=== PATIENT | male | born 1975 | race Caucasian/White ===

== ENCOUNTER 2017-08-07 16:53 | Outpatient (CLI) | payer OTHER ==
--- NOTE | 2017-08-11 08:47 | Ultrasound Report ---
Procedure Date: 08/07/2017 Accession Number: [id number] / [id number] Procedure: US - Testicle CPT Code: FULL RESULT: EXAM: Testicle DATE: 08/07/2017 5:42 PM CLINICAL HISTORY: Follow-up CALCIFICATIONS COMPARISON: None. TECHNIQUE: Real-time scanning was performed with static images obtained, including color-flow. FINDINGS: Right: Testis: 4.5 x 3.3 x 2.4 cm. Normal size and echotexture. No mass or abnormal blood flow. Scattered punctate microcalcifications are present. Epididymis: 0.9 x 0.7 x 1.3 cm. Normal size and echotexture. No mass or abnormal blood flow. 2.5 x 1.7 x 2.8 cm simple cyst. Hydrocele: None. Varicocele: None. Left: Testis: 5 x 3.6 x 2.5 cm. Normal size and echotexture. No mass or abnormal blood flow. Scattered punctate microcalcifications are present. Epididymis: 1.2 x 1.1 x 0.7 cm. Normal size and echotexture. No mass or abnormal blood flow. 2 mm in diameter simple cyst. Hydrocele: None. Varicocele: None. IMPRESSION: Bilateral scattered punctate testicular microcalcifications are present. No solid mass is seen. Right larger than left epididymal cyst. RADIA
== END 2017-08-07 16:54 | disposition home or self-care (01) ==
LOC: DI 16:53
PROVIDERS: ATTEND Physician Assistant
DX: N50.89 Other specified disorders of the male genital organs (principal); N50.3 Cyst of epididymis
CPT/HCPCS: 76870

== ENCOUNTER 2018-07-06 08:33 | Outpatient (CLI) | payer OTHER ==
[2018-07-06 12:29] LABS: BASOPHILS % (AUTO) 0.6 %; EOSINOPHILS # (AUTO) 0.1 10^3/uL (0.0-0.7); EOSINOPHILS % (AUTO) 2.1 %; HGB - HEMOGLOBIN 14.2 g/dL (14.0-18.0); LYMPHOCYTES # (AUTO) 1.7 10^3/uL (1.5-3.5); LYMPHOCYTES % (AUTO) 34.1 %; MEAN CORPUSCULAR HEMOGLOBIN 29.1 pg (27.0-31.0); MEAN CORPUSCULAR HGB CONC 33.5 g/dL (32.0-36.0); MEAN CORPUSCULAR VOLUME 86.9 fL (80.0-94.0); MONOCYTES # (AUTO) 0.6 10^3/uL (0.0-1.0); NEUTROPHILS # (AUTO) 2.5 10^3/uL (1.5-6.6); NEUTROPHILS % (AUTO) 51.2 %; PLT - PLATELET COUNT 245 10^3/uL (130-450); RED BLOOD COUNT 4.87 10^6/uL (4.70-6.10); RED CELL DISTRIBUTION WIDTH 13.2 % (12.0-15.0)
[2018-07-06 12:34] LABS: ALBUMIN 4.2 g/dL (3.2-5.5); ALBUMIN/GLOBULIN RATIO 1.6 (1.0-2.2); ALKALINE PHOSPHATASE 68 IU/L (42-121); ALT ALANINE AMINOTRANSFERASE 42 IU/L (10-60); AST ASPARTATE AMINOTRANSFERASE 29 IU/L (10-42); BILIRUBIN,TOTAL 0.6 mg/dL (0.2-1.0); BUN - BLOOD UREA NITROGEN 19 mg/dL (6-20); CALCIUM 9.2 mg/dL (8.5-10.3); CARBON DIOXIDE - CO2 28 mmol/L (21-32); CHLORIDE 101 mmol/L (101-111); CHOL/HDL RATIO 4.8 (<5.0); CHOLESTEROL 206 mg/dL; CREATININE 0.9 mg/dL (0.6-1.2); GFR - MDRD 91 (>89); GLUCOSE 99 mg/dL (70-100); HDL CHOLESTEROL 43 mg/dL; LDL CHOLESTEROL,CALCULATED 135 mg/dL; LDL/HDL RATIO 3.1 (<3.6); SODIUM 137 mmol/L (135-145); TOTAL PROTEIN 6.9 g/dL (6.7-8.2); VLDL CHOLESTEROL 28 mg/dL
== END 2018-07-06 08:34 | disposition home or self-care (01) ==
LOC: LAB.WCP 08:33
PROVIDERS: ATTEND Family Medicine
DX: E78.5 Hyperlipidemia, unspecified (principal); R53.83 Other fatigue; R20.2 Paresthesia of skin
CPT/HCPCS: 36415; 80053; 80061; 83721; 84443; 85025

== ENCOUNTER 2018-10-05 10:19 | Outpatient (CLI) | payer OTHER ==
--- NOTE | 2018-10-05 15:31 | SLEEP CARE CONSULTATION ---
Information from patient questionnaire entered by Lia Duran. I have reviewed and concur with the information entered by Lia Duran. This document represents the service I personally performed and the decisions made by me, Luly Orourke MD, [facility]. History of Present Illness Reason for Visit: New patient Chief Complaint: reports: Unrefreshed sleep, Snoring, Excessive daytime sleepiness, Observed pauses in breathing, Fatigue Usual bedtime: 9:00 PM Time it takes to fall asleep: 2 HOURS Snores at night: Yes Observed to quit breathing while asleep: No Sleeps alone due to snoring: No Toss, Turn, or Twitch while sleeping: No Recalls having dreams: No Usually gets out of bed at: 6:00AM Feels refreshed in the morning: No Morning headache: No Sleepy or fatigued during the day: Yes Ever fallen asleep while driving: No Takes day naps: Yes Dreams during day naps: Yes Prior sleep studies: No Additional HPI information: I had the pleasure of seeing Mr. Gr today regarding the possibility of him having a sleep disorder. As you know, he is a 43 year old gentleman who complains of loud snore, observed apneas, unrefreshed sleep persistent fatigue, and excessive daytime sleepiness. He also complains of restless leg syndrome before he falls asleep. The patient tells me that he normally goes to bed around 9 pm, and it takes him approximately 2 hours to fall asleep because of his legs. His can still sleep in the same bed. He can recall waking up on the average of 0 times during the night. He has awakened occasionally because of his own snoring, choking, and having to gasp for air. There is not a lot of tossing and turning in his sleep. He has somniloquy (sleep talking) but not somnambulism (sleep walking). Generally he can recall having dreams. In the morning he usually gets up out of the bed around 6 a.m. feeling refreshed and rested. He usually does not have a morning headache. During the day he complains of feeling sleepy and fatigued. His score on [place] Sleepiness Scale is 13 out of 24. He has never fallen asleep while driving nor has had any accident due to sleepiness. He usually does not take naps during the day. Upon falling asleep during the day he reports having dreams. He denies having impaired concentration during the day. Subjective Initial [place] Sleepiness Scale score: 13 Social History The patient's occupation is a SE. Patient is and lives in [place]. Have you smoked in the past 12 months: Yes Cigarettes per day (20/pack): 20 Years of smokin Quit date: 2016 Smoking Pack Years: 20.0 Alcohol use: No Caffeine use: Yes Caffeine amount and frequency: 3 CUPS/DAY Family History Family history of sleep disordered breathing: Yes Family Hx Sleep Apnea: Mother: Snoring Allergies and Home Medications Known drug allergies: No Home medication list reviewed: Yes Review of Systems Ear/Nose/Throat: reports: nasal congestion, sinus problems Immunologic: reports: sneezing Physical Exam Vital signs obtained and entered by: Dr. Orourke Blood Pressure: 90/60 Cuff size: regular Heart Rate: 66 O2 Saturation: 97 Height: 5 ft 11 in Weight (kg): 85.275 kg Body Mass Index: 26.2 BMI Classification: Overweight Neck circumference: 17 HEENT: No craniofacial malformation Nostrils: patent to airflow Turbinates: normal Septum: midline Mouth and throat: normal Soft palate: normal Hard palate: normal Uvula: normal Uvula visualization: 100% Mallampati Class I Tongue: normal in size Tonsils: small Chin and jaw: normal size and position Neck: normal w/o lymphadenopathy or thyromegaly Heart: regular rate and rhythm Lungs: clear bilaterally Abdomen: soft, non-tender Extremities: no edema or clubbing Neurologic: intact, no focal deficits Impression and Plan IMPRESSION: 1. Obstructive Sleep Apnea-Hypopnea Syndrome, as suggested by history of loud and irregular snoring, observed cessation of breath while asleep, and daytime hypersomnolence. Pathophysiology of sleep-disordered breathing was discussed. I recommend proceeding to polysomnography to confirm the diagnosis and to assess severity. If he has significant sleep disordered breathing, a manual CPAP titration study will also be performed to find the optimal treatment pressure. I informed the patient of what the sleep studies involve and after some discussion, he agreed to proceed. 2. Restless leg syndrome. The patients description of the discomfort is quite typical of restless leg syndrome. The cause of restless leg syndrome is typically unknown. Few known causes are iron deficiency, renal failure, and selective serotonin reuptake inhibitors. Iron and ferritin levels are recommended in addition to the routine blood work. Treatment with a dopaminergic agent is indicated if it causes significant discomfort, including insomnia. The sleep study most likely will show periodic leg movement of sleep. Plan: 1. Schedule polysomnography + manual CPAP titration study and return in 1 to 2 weeks after the study to discuss result and initiate therapy. 2. Avoid long distance driving or when feeling sleepy. 3. Avoid alcohol, sedative and muscle relaxant around bedtime. 4. Attempt to lose weight. 5. Primary care provider to check iron and ferritin levels. I spent 100% of this 15 minute visit face to face with the patient with greater than 50% of this was spent time counseling the patient and coordination of care.
[2018-10-05 15:32] VITALS: BP 90/60
== END 2018-10-05 10:20 | disposition home or self-care (01) ==
LOC: SC 10:19
PROVIDERS: ATTEND Internal Medicine Pulmonary Disease
DX: G47.10 Hypersomnia, unspecified (principal); R06.83 Snoring; R06.81 Apnea, not elsewhere classified; G25.81 Restless legs syndrome
CPT/HCPCS: 99203; 99212

== ENCOUNTER 2018-10-05 15:01 | Outpatient (CLI) | payer OTHER ==
--- NOTE | 2018-10-06 15:40 | Ultrasound Report ---
Reason: RADIOGRAPHIC CALCIFICATION Procedure Date: 10/05/2018 Accession Number: [id number] / [id number] Procedure: US - Testicle CPT Code: FULL RESULT: EXAM: SCROTAL ULTRASOUND EXAM DATE: 10/05/2018 04:13 PM. CLINICAL HISTORY: RADIOGRAPHIC CALCIFICATION. COMPARISON: TESTICLE 08/07/2017 4:59 PM. TECHNIQUE: Real-time scanning was performed with static images obtained. Color-flow images were utilized. FINDINGS: Right: Testis: 4.9 x 2.4 x 3.2 cm. Microlithiasis again visualized Normal size and echotexture. No mass or abnormal blood flow. Epididymis: 5 x 0.3 x 0.7 cm. 2.6 x 1.6 x 2.3 cm cyst Normal size and echotexture. No mass or abnormal blood flow. Hydrocele: Small with debris Varicocele: None. Left: Testis: 5.1 x 2.2 x 3 cm. Microlithiasis again visualized Normal size and echotexture. No mass or abnormal blood flow. Epididymis: 4.4 x 0.3 x 0.9 cm. 0.2 x 0.1 x 0.2 cm epididymal cyst Normal size and echotexture. No mass or abnormal blood flow. Hydrocele: Small with debris Varicocele: None. IMPRESSION: 1. Bilateral microlithiasis. No solid mass. 2. Right larger than left epididymal cyst RADIA
== END 2018-10-05 15:02 | disposition home or self-care (01) ==
LOC: DI 15:01
PROVIDERS: ATTEND Physician Assistant
DX: N50.89 Other specified disorders of the male genital organs (principal); N50.3 Cyst of epididymis
CPT/HCPCS: 76870

== ENCOUNTER 2018-11-10 19:30 | Outpatient (CLI) | payer OTHER | END 2018-11-10 23:59 | disposition home or self-care (01) | LOC: SC 19:30 | PROVIDERS: ATTEND Internal Medicine Pulmonary Disease | DX: G47.33 Obstructive sleep apnea (adult) (pediatric) (principal) | CPT/HCPCS: 95806 ==

== ENCOUNTER 2018-12-09 08:48 | Outpatient (CLI) | payer BC ==
[2018-12-09 09:53] VITALS: BP 100/70
--- NOTE | 2018-12-09 09:53 | SLEEP CARE CONSULTATION ---
Information from patient questionnaire entered by Celina Álvarez. I have reviewed and concur with the information entered by Celina Álvarez. This document represents the service I personally performed and the decisions made by me, Eun Restrepo RN, MSN, [employer]. History of Present Illness Initial [place] Sleepiness Scale score: 13 Current [place] Sleepiness Scale score: 15 Additional HPI information: MAITE GUTIERREZ returns for follow up of the recently performed home sleep study ( HST). His spouse stated this was his best night of sleep in a while. Generally he is snoring is louder and more apnea observed. The patient was informed of the following HST findings: I explained the pathophysiology behind obstructive sleep apnea. We then spent quite a bit of time discussing different treatment options. For mild obstructive sleep apnea, surgery and oral appliance are alternatives to nasal CPAP therapy but in moderate or severe cases, nasal CPAP is the most effective and reliable treatment. Because apnea is primarily in supine position, then positional management therapy could be effective. Methods discussed such as positioning with pillows, using a T-shirt with tennis balls in the back, and shown commercial products that have a pillow format on back to prevent supine sleep. I reviewed the impact of weight changes on sleep apnea and strongly recommended losing weight. After some discussion, he will consider options and contact this office with choice of treatment. Patient states his main concern is getting to sleep due to restlessness of legs most nights. Symptoms include twitching of legs and feeling an overwhelming to move legs with temporary relief. It also will reduce with walking around. He has a lab studies but it is unknown if iron completed. AAS RLS pamphlet given and reviewed. Patient counseled not drink alcohol less than 4 hours before bedtime as it can increase snoring and apnea. Patient was cautioned about risks of drowsy driving until sleepiness symptoms resolve. AAS patient education on snoring and sleep apnea given and reviewed. Sleep Study - Polysomnography Polysomnography findings: HST Findings SLEEP TIME AND EFFICIENCY: The sleep study recording began at 09:15:55 PM and ended at 05:04:09 AM. Total recording time was 468.2 minutes. The total sleep time was 399.5 minutes. The sleep efficiency was 85.3 percent. The patient spent 191.7 minutes supine, and spent 207.8 minutes non-supine. The patients own estimate of sleep time was 6.00 hours. RESPIRATORY DATA: The AHI in this report is indexed to sleep time based on actigraphy. The AASM defines this as MARCOS. The AHI on this type 3 Home Sleep Study may understate the AHI determined on a type 1 or 2 study, since EEG is not monitored resulting in the inability to score non-desaturating hypopneas. Based on 4% Calculation: The AHI4% calculation of 5.0 per hour of recording time was based on a total of 19 scored apneas and 14 scored hypopneas with 4% desaturations. Supine AHI4%: 8.1 per hour. Non-supine AHI4%: 2.0 per hour. Oxygen Summary: Patient's baseline O2 saturation was 96.8 %. The patient spent 1.3 minutes at an oxygen saturation less than 90%, and 0.4 minutes less than 85%. The desaturation index was 3.8 events per hour sleep time. The lowest saturation was 80.4 %. SNORING: The percent of the study time spent snoring was 0.0 %. The Snoring Count was 1 . The Snoring Index was 0.2 Allergies and Home Medications Known drug allergies: No Home medication list reviewed: No (none) Review of Systems Review of systems same as previous: Yes Physical Exam Blood Pressure: 100/70 Cuff size: long Heart Rate: 75 O2 Saturation: 95 Height: 6 ft Weight: 197 lb Body Mass Index: 26.7 BMI Classification: Overweight Impression and Plan 1. Obstructive Sleep Apnea-Hypopnea Syndrome, mild, with lowest oxygen saturation of 80.4%. Possibly this is the cause of the patients symptoms of unrefreshed sleep, and excessive daytime sleepiness. Positive pressure therapy could benefit his RLS. Patient would like to discuss his treatment options with his spouse before starting. Because the apnea is more severe supine, I instructe d to avoid sleeping supine using pillow positioning until able to start CPAP use. 2. Restless Leg Syndrome (RLS): as exhibited by an urge to move the legs and generally involves symptoms of uncomfortable and unpleasant sensations. Symptoms usually begin or worsen with inactivity or periods of rest such as sitting or lying down. These symptoms can be partially or completely relieved with movement such as stretching, walking or other movement. Generally they occur late in the evening or at bedtime. Sometimes the urge to move legs can be without discomfort or involve the arms and other parts of the body. Symptoms can cause patient concern and difficulty initiating sleep affecting daytime functioning. RLS is a sensorimotor disorder that can be hereditary and is often associated with PLMS periodic limb movement of sleep. It can also be secondary to mild iron deficiency (serum ferritin less than 50mcg - 75mcg/L) and magnesium deficiencies. Other medical conditions associated with RLS are narcolepsy,migraine headaches, chronic obstructive pulmonary disease, Parkinson disease, multiple sclerosis, peripheral neuropathy, obstructive sleep apnea, diabetes mellitus, fibromyalgia, rheumatoid arthritis, nocturnal eating, obesity, thyroid disease and heart disease and renal failure as well as mood disorders and ADHD. Also, medications such as most antidepressants with exception of bupropion, some centrally active dopamine receptor antagonists, sedating antihistamines suchas Benadryl can precipitate or aggravate this disorder. Other factors that can increase symptoms are sleep deprivation, caffeine, nicotine and alcohol use. I recommend ruling out these conditions if not already done. AAS Restless Leg syndrome pamphlet given and reviewed. * Conttact his office with apnea treatment choice * Attempt to lose weight. * Avoid alcohol consumption near bedtime. * Avoid supine sleep * Follow up with PCP in regard to iron / magnesium deficiency as cause of RLS. * The patient is again cautioned about driving until sleepiness completely resolves. * I spent 100% of this 35 minute visit face to face with the patient with greater than 50% of this was spent time counseling the patient and coordination of care.
== END 2018-12-09 08:49 | disposition home or self-care (01) ==
LOC: SC 08:48
PROVIDERS: ATTEND Nurse Practitioner Family
DX: G47.33 Obstructive sleep apnea (adult) (pediatric) (principal); G25.81 Restless legs syndrome
CPT/HCPCS: 99212; 99214

== ENCOUNTER 2019-06-02 08:00 | Outpatient (CLI) | payer BC | END 2019-06-02 23:59 | disposition home or self-care (01) | LOC: LAB.R 08:00 | PROVIDERS: ATTEND Physician Assistant Medical | DX: L30.9 Dermatitis, unspecified (principal) | CPT/HCPCS: 87070; 87181; 87205 ==

== ENCOUNTER 2020-02-02 13:51 | Outpatient (CLI) | payer BC ==
--- NOTE | 2020-02-02 14:24 | SLEEP CARE CONSULTATION ---
Information from patient questionnaire entered by Alfredo Loyola. I have reviewed and concur with the information entered by Alfredo Loyola. This document represents the service I personally performed and the decisions made by me, Sindhu Briceno ARNP. History of Present Illness Service Date and Time: 02/02/2020 1351 Previous diagnosis: Mild, Obstructive Sleep Apnea-Hypopnea Syndrome AHI: 5.0 Reason for follow up: annual (last seen 11/2018--start CPAP) Year and Where: 2018 [facility] Type of Sleep Study: Home sleep study HPI additional information: MAITE GUTIERREZ was diagnosed to have mild, AHI 5.0, obstructive sleep apnea- hypopnea syndrome and returned today to start CPAP therapy. He has RLS that is not improving and he had a sciatic nerve issue and was given some muscle relaxers. He is not sure that this helps. He has tried positional therapy and OTC mouth guard to keep his jaw forward to reduce his apneas instead of the CPAP. He feels this is not working and now would like to try the CPAP therapy. He has unrefreshed sleep, not getting good sleep, is waking him up due to his snoring and he is groggy in the mornings for about an hour. He also has difficulty getting to sleep at night onset. His states he stops breathing and then he gasps for air. Subjective Initial [place] Sleepiness Scale score: 13 (in 2019) Current [place] Sleepiness Scale score: 18 Allergies and Home Medications Drug allergies reviewed: Yes (NKDA) Home medication list reviewed: Yes (no medications) Review of Systems Review of systems same as previous: Yes (no changes) Physical Exam Heart Rate: 91 O2 Saturation: 98 Height: 6 ft Weight: 183 lb Body Mass Index: 24.8 BMI Classification: Healthy weight Impression and Plan 1. Obstructive Sleep Apnea-Hypopnea Syndrome, as previously diagnosed and as suggested by a history of loud and irregular snoring, observed cessation of breath while asleep, gasping or choking in sleep, frequent awakening during the night, unrefreshed sleep, and excessive daytime sleepiness. Patient tried non- pap alternatives to treat his mild obstructive sleep apnea but has only had "moderate" success and would like to try the CPAP therapy now. I recommend p roceeding to polysomnography to confirm the diagnosis and to assess severity since he has not been on CPAP therapy. * Schedule polysomnography/HST for reevaluation. * Avoid long distance driving or driving when feeling sleepy. * Avoid alcohol, sedative and muscle relaxant around bedtime. * Review instructions provided by trained office staff on how to prepare for the sleep study. * Return for follow-up after sleep study completed. Visit Type: In Office Time Spent with Patient (minutes): 19 Provider Statement: I spent 100% of the Face to Face Visit with the patient with greater than 50% spent counseling the patient and coordination of care.
== END 2020-02-02 13:52 | disposition home or self-care (01) ==
LOC: SC 13:51
PROVIDERS: ATTEND Nurse Practitioner Family
DX: G47.33 Obstructive sleep apnea (adult) (pediatric) (principal)
CPT/HCPCS: 99212; 99213

== ENCOUNTER 2020-02-09 14:02 | Outpatient (CLI) | payer BC | END 2020-02-09 14:03 | disposition home or self-care (01) | LOC: SC 14:02 | PROVIDERS: ATTEND Nurse Practitioner Family | DX: G47.10 Hypersomnia, unspecified (principal); G47.8 Other sleep disorders; R06.83 Snoring; R06.81 Apnea, not elsewhere classified | CPT/HCPCS: 95806 ==

== ENCOUNTER 2020-02-16 13:51 | Outpatient (CLI) | payer BC ==
--- NOTE | 2020-02-16 14:16 | SLEEP CARE CONSULTATION ---
Information from patient questionnaire entered by Celina Álvarez. I have reviewed and concur with the information entered by Celina Álvarez. This document represents the service I personally performed and the decisions made by , Sindhu Briceno ARNP. History of Present Illness Service Date and Time: 02/16/2020 1351 Initial [place] Sleepiness Scale score: 13 (in 2019) Current [place] Sleepiness Scale score: 15 Additional HPI information: MAITE GUTIERREZ returns for follow up and results of the recently performed home sleep study. The patient was informed of the following findings: he had no significant sleep disordered breathing with an average AHI of 2.5 and joni oxygen saturation of 88%. I explained the pathophysiology behind obstructive sleep apnea. Patient does not have sleep apnea and was advised how weight gain could increase the risk of developing sleep apnea in the future. I strongly encouraged the patient to lose weight. Patient has moderate snoring. Snoring can be reduced by weight loss. Weight loss is best achieved with diet consult. Patient instructed to contact PCP for referral. Snoring can also be treated with an oral appliance from a dentist. Advised to check insurance coverage. In addition, an ENT evaluation can be do to see if other treatment is indicated. Patient was cautioned about risks of drowsy driving until sleepiness symptoms resolve. Sleep Study - Results Type of Sleep Study: Home sleep study Prior sleep studies: Yes (home study) Year and Where: 2019 - [facility] Polysomnography/Home Sleep Study results: Physician Impression: The quality of the study is good. The length of the study is adequate (> 240 minutes). Please also see the tabulated and graphic data. 1. No significant sleep disordered breathing, with an AHI of 2.5/hr and joni SaO2 of 88%. During the study, the patient had 4 apneas (4 obstructive, 0 central, 0 mixed) and 12 hypopneas. The longest episode lasted 65.0 seconds. The few respiratory events occurred independently of sleep stage and body position (supine AHI was 2.7 and non-supine, 2.49). 2. Hypoxemia (ICD-10 R09.02), minimal, with the lowest oxygen saturation of 88 % and 0.3 minutes with SaO2 under 90%. Baseline oxygen saturation was normal (Average oxygen saturation was 95%). Allergies and Home Medications Drug allergies reviewed: Yes (NKDA) Home medication list reviewed: Yes (no changes) Review of Systems Review of systems same as previous: Yes (no changes) Physical Exam Heart Rate: 64 O2 Saturation: 100 Height: 6 ft Weight: 182 lb Body Mass Index: 24.7 BMI Classification: Healthy weight Impression and Plan 1. Snoring but no significant sleep disordered breathing. Patient advised that often weight loss will reduce snoring as well as apnea risk. An oral appliance can also be used for snoring. This would require a dental consultation. Patient cautioned not to use other online appliances as can cause bite issues. Patient is advised to check if insurance will cover. An ENT consult can also be helpful to determine if any other treatment is an option. * Attempt to lose weight * Avoid alcohol consumption near bedtime * The patient is cautioned about driving until sleepiness is completely resolved. * Return as needed. Visit Type: In Office Time Spent with Patient (minutes): 15 Provider Statement: I spent 100% of the Face to Face Visit with the patient with greater than 50% spent counseling the patient and coordination of care.
== END 2020-02-16 13:52 | disposition home or self-care (01) ==
LOC: SC 13:51
PROVIDERS: ATTEND Nurse Practitioner Family
DX: R06.83 Snoring (principal)
CPT/HCPCS: 99212; 99213

== ENCOUNTER 2023-09-12 10:47 | Outpatient (CLI) | payer OTHER ==
[2023-09-12 11:01] LABS: BASOPHILS % (AUTO) 0.7 %; EOSINOPHILS # (AUTO) 0.1 10^3/uL (0.0-0.7); EOSINOPHILS % (AUTO) 1.4 %; HCT - HEMATOCRIT 43.5 % (42.0-52.0); HGB - HEMOGLOBIN 13.9 g/dL (14.0-18.0); LYMPHOCYTES # (AUTO) 1.7 10^3/uL (1.5-3.5); LYMPHOCYTES % (AUTO) 31.3 %; MEAN CORPUSCULAR HEMOGLOBIN 28.6 pg (27.0-31.0); MEAN CORPUSCULAR VOLUME 89.5 fL (80.0-94.0); MEAN PLATELET VOLUME 9.2 fL (7.4-11.4); MONOCYTES # (AUTO) 0.4 10^3/uL (0.0-1.0); MONOCYTES % (AUTO) 7.9 %; NEUTROPHILS # (AUTO) 3.3 10^3/uL (1.5-6.6); NEUTROPHILS % (AUTO) 58.5 %; PLT - PLATELET COUNT 268 10^3/uL (130-450); RED BLOOD COUNT 4.86 10^6/uL (4.70-6.10); RED CELL DISTRIBUTION WIDTH 12.9 % (12.0-15.0); WHITE BLOOD COUNT 5.6 x10^3/uL (4.8-10.8)
== END 2023-09-12 10:48 | disposition home or self-care (01) ==
LOC: LAB 10:47
PROVIDERS: ATTEND Internal Medicine
DX: G25.81 Restless legs syndrome (principal)
CPT/HCPCS: 36415; 82728; 83540; 84466; 85025